=== PATIENT | female | born 1955 | race Caucasian/White ===

== ENCOUNTER 2018-04-24 14:57 | Emergency (ER) | payer OTHER ==
[2018-04-24 16:14] LABS: #Basophils 0.1 thou/uL (0.0-0.2); #Eosinphils 0.3 thou/uL (0.0-0.7); #Lymphocytes 5.3 thou/uL (1.20-3.40); #Monocytes 0.5 thou/uL (0.11-0.59); #Neutrophils 7.8 thou/uL (1.40-6.50); %Basophils 0.9 % (0.0-1.0); %Eosinophils 2.3 % (0.0-10.0); %Lymphocytes 37.7 % (21.0-51.0); %Monocytes 3.3 % (0.0-10.0); %Neutrophils 55.8 % (42.0-75.0); Hemoglobin 14.7 g/dL (12.0-16.0); Mean Corpuscular HGB CONC 33.1 g/dL (32.0-36.0); Mean Corpuscular Volume 93.6 fL (78.0-98.0); Mean Platelet Volume 8.4 fL (7.4-10.4); Platelet Count 345 thou/uL (130-400); RBC Distribution Width 13.1 % (11.5-14.5); Red Blood Cell (RBC) Count 4.76 mill/uL (4.20-5.40)
--- NOTE | 2018-04-24 16:21 | RAD ---
AP CHEST: History: History of hypotension. Date: 04-24-18 Comparison: 08-05-10 FINDINGS: AP chest demonstrates mild cardiomegaly. No evidence of effusions, pneumonia, or pneumothorax seen. M ild pulmonary vascular congestion is seen. IMPRESSION: Mild cardiomegaly and pulmonary vascular congestion. POS: [facility]
[2018-04-24 16:28] LABS: ALT (SGPT) 58 U/L (8-55); AST (SGOT) 66 U/L (5-34); Albumin 4.1 g/dL (3.4-4.8); Alkaline Phosphatase 104 U/L (40-150); Anion Gap 18 mmol/L (10-20); BUN (Urea Nitrogen) 10 mg/dL (9.8-20.1); Calc. Creatinine Clearance 0 mL/min (70-130); Calcium 9.5 mg/dL (7.8-10.44); Carbon Dioxide 23 mmol/L (23-31); Chloride 107 mmol/L (98-107); Estimated GFR-MDRD 57; Glucose 170 mg/dL (80-115); Potassium 3.6 mmol/L (3.5-5.1); Protein, Total 7.1 g/dL (6.0-8.3); Sodium 144 mmol/L (136-145)
[2018-04-24] MEDS ORDERED: Ipratropium Bromide 2.5 ml Neb ONE (18:28)
[2018-04-24] MEDS ORDERED: Albuterol Sulfate 2.5 mg/3 ml Neb ONE (18:28)
== END 2018-04-24 18:58 | disposition home or self-care (01) ==
LOC: MADERS 14:57
DX: J11.1 Influenza due to unidentified influenza virus with other respiratory manifestations (principal); E78.5 Hyperlipidemia, unspecified; I10 Essential (primary) hypertension; Z79.899 Other long term (current) drug therapy
CPT/HCPCS: 36415; 71045; 80053; 83880; 85025; 87804; 93005; J7611; J7620

== ENCOUNTER 2019-01-04 14:22 | Emergency (ER) | payer OTHER ==
--- NOTE | 2019-01-04 15:34 | RAD ---
EXAM: Chest PA and lateral: HISTORY: Cough. COMPARISON: 04/24/2018 FINDINGS: Heart: Cardiomegaly Aorta: Unremarkable Pulmonary vessels: Normal Costophrenic angles: Costophrenic angles are clear. Lungs: No consolidation or masses. Hyperinflation. Chronic changes. Pneumothorax: No pneumothorax Osseous structures: No osseous abnormalities IMPRESSION: No acute cardiopulmonary process. Hyperinflation. Chronic changes.
[2019-01-04 15:35] LABS: #Basophils 0.1 thou/uL (0.0-0.2); #Eosinphils 0.3 thou/uL (0.0-0.7); #Lymphocytes 4.9 thou/uL (1.20-3.40); #Monocytes 0.6 thou/uL (0.11-0.59); #Neutrophils 6.6 thou/uL (1.40-6.50); %Basophils 0.8 % (0.0-1.0); %Eosinophils 2.6 % (0.0-10.0); %Lymphocytes 39.1 % (21.0-51.0); %Monocytes 4.6 % (0.0-10.0); %Neutrophils 52.9 % (42.0-75.0); Hemoglobin 13.7 g/dL (12.0-16.0); Mean Corpuscular HGB CONC 30.9 g/dL (32.0-36.0); Mean Corpuscular Hemoglobin 30.1 pg (27.0-31.0); Mean Corpuscular Volume 97.4 fL (78.0-98.0); Mean Platelet Volume 7.8 fL (7.4-10.4); Platelet Count 390 thou/uL (130-400); RBC Distribution Width 12.9 % (11.5-14.5); Red Blood Cell (RBC) Count 4.54 mill/uL (4.20-5.40); White Blood Cell (WBC) Count 12.4 thou/uL (4.8-10.8)
[2019-01-04 15:51] LABS: ALT (SGPT) 29 U/L (8-55); AST (SGOT) 24 U/L (5-34); Albumin 4.3 g/dL (3.4-4.8); Alkaline Phosphatase 105 U/L (40-110); Anion Gap 16 mmol/L (10-20); BUN (Urea Nitrogen) 13 mg/dL (9.8-20.1); Bilirubin, Total 1.3 mg/dL (0.2-1.2); Calc. Creatinine Clearance 0 mL/min (70-130); Calcium 9.5 mg/dL (7.8-10.44); Carbon Dioxide 24 mmol/L (23-31); Chloride 108 mmol/L (98-107); Estimated GFR-MDRD 52; Globulin 2.9 g/dL (2.4-3.5); Glucose 109 mg/dL (80-115); Potassium 3.7 mmol/L (3.5-5.1); Protein, Total 7.2 g/dL (6.0-8.3); Sodium 144 mmol/L (136-145)
[2019-01-04] MEDS ORDERED: Sodium Chloride 0.9% 0 ML ONE (16:40)
[2019-01-04] MEDS ORDERED: cefTRIAXone\\ROCEPHIN 1 GM VIAL ONE (16:41)
[2019-01-04] MEDS ORDERED: Benzonatate 100 MG CAP ONE (17:31)
== END 2019-01-04 18:39 | disposition home or self-care (01) ==
LOC: MADERS 14:22
DX: J44.1 Chronic obstructive pulmonary disease with (acute) exacerbation (principal); M10.9 Gout, unspecified; D50.9 Iron deficiency anemia, unspecified; E03.9 Hypothyroidism, unspecified
CPT/HCPCS: 36415; 71046; 80053; 85025; 87804; 96372; J0696; J1040; J3490; J7620

== ENCOUNTER 2020-06-15 13:46 | Outpatient (CLI) | payer OTHER ==
[2020-06-15 13:59] LABS: #Basophils 0.1 thou/uL (0.0-0.2); #Eosinphils 0.3 thou/uL (0.0-0.7); #Monocytes 0.5 thou/uL (0.11-0.59); #Neutrophils 5.1 thou/uL (1.40-6.50); %Basophils 1.1 % (0.0-1.0); %Eosinophils 2.6 % (0.0-10.0); %Lymphocytes 39.9 % (21.0-51.0); %Neutrophils 51.4 % (42.0-75.0); Hemoglobin 14.6 g/dL (12.0-16.0); Mean Corpuscular HGB CONC 30.9 g/dL (32.0-36.0); Mean Corpuscular Hemoglobin 30.5 pg (27.0-31.0); Mean Corpuscular Volume 98.9 fL (78.0-98.0); Platelet Count 284 thou/uL (130-400); RBC Distribution Width 13.3 % (11.5-14.5); White Blood Cell (WBC) Count 9.9 thou/uL (4.8-10.8)
[2020-06-15 14:16] LABS: ALT (SGPT) 27 U/L (8-55); AST (SGOT) 19 U/L (5-34); Albumin 4.3 g/dL (3.4-4.8); Alkaline Phosphatase 98 U/L (40-110); Anion Gap 16 mmol/L (10-20); BUN (Urea Nitrogen) 18 mg/dL (9.8-20.1); Bilirubin, Total 1.3 mg/dL (0.2-1.2); Calc. Creatinine Clearance 0 mL/min (70-130); Calcium 9.3 mg/dL (7.8-10.44); Carbon Dioxide 25 mmol/L (23-31); Chloride 107 mmol/L (98-107); Cholesterol 117 mg/dl (< 200 Desired); Globulin 2.7 g/dL (2.4-3.5); Glucose 110 mg/dL (80-115); HDL Cholesterol 39 mg/dL (>60 Neg Risk); LDL Cholesterol, Calculated 45 mg/dL; Potassium 4.5 mmol/L (3.5-5.1); Sodium 143 mmol/L (136-145); Triglycerides 163 mg/dL (Less than 150); Uric Acid 4.2 mg/dL (2.6-6.0)
[2020-06-15 22:21] LABS: Hemoglobin A1c 6.1 % (4.0-6.0)
[2020-06-15 22:23] LABS: Gamma GT (GGT) 34 U/L (9-36)
[2020-06-15 22:30] LABS: Creatinine, Urine 133.72 mg/dL (47-110); Microalbumin Urine 9.2 mg/dL (0.5-50.0); Microalbumin/Creat Ratio 68.8 mg/g (Less than 30)
[2020-06-15 22:31] LABS: Vitamin D, 25 Hydroxy 27.7 ng/ml (> 30.0)
[2020-06-15 22:36] LABS: Free T4 (Free Thyroxine) 1.1 ng/dL (0.70-1.48)
== END 2020-06-15 13:47 | disposition home or self-care (01) ==
LOC: MADLAB 13:46
PROVIDERS: ATTEND Family Medicine
DX: R94.5 Abnormal results of liver function studies (principal); R06.02 Shortness of breath; I25.10 Atherosclerotic heart disease of native coronary artery without angina pectoris; R73.02 Impaired glucose tolerance (oral); E55.9 Vitamin D deficiency, unspecified; D51.0 Vitamin B12 deficiency anemia due to intrinsic factor deficiency; M10.9 Gout, unspecified
CPT/HCPCS: 36415; 71046; 80053; 80061; 82043; 82306; 82607; 82977; 83036; 84439; 84443; 84550; 85025

== ENCOUNTER 2023-02-21 11:45 | Emergency (ER) | payer MEDICARE, OTHER ==
[2023-02-21] MEDS ORDERED: Ipratropium/Albuterol 3 ML NEB ONE (12:22)
[2023-02-21] MEDS ORDERED: predniSONE 20 MG TAB ONE (12:22)
[2023-02-21] MEDS ORDERED: Acetaminophen 500 MG TAB ONE (12:22)
[2023-02-21] MEDS ORDERED: predniSONE 10 MG TAB ONE (12:22)
[2023-02-21] MEDS ORDERED: Ibuprofen 800 MG TAB ONE (12:22)
[2023-02-21] MEDS ORDERED: Ondansetron ODT 4 MG TAB ONE (12:26)
[2023-02-21 13:08] LABS: Hematocrit 41.4 % (36.0-47.0); Hemoglobin 13.2 g/dL (12.0-16.0); Mean Corpuscular Hemoglobin 30.3 pg (27.0-31.0); Mean Corpuscular Volume 94.9 fl (78.0-98.0); Platelet Count 155 10x3/uL (130-400); RBC Distribution Width 12.1 % (11.5-14.5); Red Blood Cell (RBC) Count 4.36 mill/uL (4.20-5.40); White Blood Cell (WBC) Count 14.4 10x3/uL (4.8-10.8)
[2023-02-21] MEDS ORDERED: Sodium Chloride 0.9% 100 ML ONE (13:12)
[2023-02-21] MEDS ORDERED: Azithromycin 500 MG VIAL ONE (13:12)
[2023-02-21] MEDS ORDERED: cefTRIAXone (ROCEPHIN) 2 GM VIAL ONE (13:12)
[2023-02-21] MEDS ORDERED: Sodium Chloride 0.9% 250 ML 250 ML ONE (13:12)
[2023-02-21 13:26] LABS: ALT (SGPT) 21 U/L (8-55); AST (SGOT) 17 U/L (5-34); Albumin 3.9 g/dL (3.4-4.8); Alkaline Phosphatase 71 U/L (40-110); Anion Gap 17 mmol/L (10-20); BUN (Urea Nitrogen) 12 mg/dL (9.8-20.1); Bilirubin, Total 1.7 mg/dL (0.2-1.2); Calc. Creatinine Clearance 0 mL/min (70-130); Calcium 8.7 mg/dL (7.8-10.44); Carbon Dioxide 20 mmol/L (23-31); Chloride 106 mmol/L (98-107); Estimated GFR 78; Globulin 2.6 g/dL (2.4-3.5); Glucose 159 mg/dL (80-115); Magnesium 1.6 mg/dL (1.6-2.6); Potassium 3.9 mmol/L (3.5-5.1); Protein, Total 6.5 g/dL (5.8-8.1); Sodium 139 mmol/L (136-145)
[2023-02-21 13:27] LABS: Band 12 % (5-11); Lymphocytes 16 % (21-51); MDiff Complete? YES; Monocytes 7 % (0-10); Neutrophil 63 % (42-75); Platelet Adequacy Comment Appears Adequate
[2023-02-21 16:02] LABS: SARS-CoV-2 NAA Rapid Test DETECTED (NotDetected)
== END 2023-02-21 16:05 | disposition short-term general hospital (02) ==
LOC: MADERS 11:45
DX: U07.1 COVID-19 (principal); J18.9 Pneumonia, unspecified organism; J96.00 Acute respiratory failure, unspecified whether with hypoxia or hypercapnia; A41.9 Sepsis, unspecified organism; I10 Essential (primary) hypertension; Z77.22 Contact with and (suspected) exposure to environmental tobacco smoke (acute) (chronic)
CPT/HCPCS: 71045; 80053; 83605; 83735; 85025; 87040; 96365; 96367; J0456; J0696; J3490; J7050; J7512; J7620; Q0162

== ENCOUNTER 2024-12-04 13:50 | Emergency (ER) | payer OTHER, MEDICAID ==
[~2024-12-04 13:50] MED LIST: Iopamidol 370 76% 100 ML VIAL ONE
[2024-12-04 14:37] LABS: #Basophils 0.1 thou/uL (0.0-0.2); #Eosinophils 0.3 thou/uL (0.0-0.7); #Lymphocytes 2.9 thou/uL (1.20-3.40); #Monocytes 0.3 thou/uL (0.11-0.59); #Neutrophils 4.1 thou/uL (1.40-6.50); %Basophils 1.3 % (0.0-1.0); %Eosinophils 4.2 % (0.0-10.0); %Lymphocytes 36.9 % (21.0-51.0); %Monocytes 4.2 % (0.0-10.0); %Neutrophils 53.4 % (42.0-75.0); Hematocrit 46.4 % (36.0-47.0); Hemoglobin 14.9 g/dL (12.0-16.0); Mean Corpuscular Hemoglobin 29.1 pg (27.0-31.0); Mean Corpuscular Volume 90.9 fl (78.0-98.0); Platelet Count 280 10x3/uL (130-400); Red Blood Cell (RBC) Count 5.11 mill/uL (4.20-5.40); White Blood Cell (WBC) Count 7.7 10x3/uL (4.8-10.8)
[2024-12-04 15:19] LABS: ALT (SGPT) 39 U/L (Less than 34); AST (SGOT) 34 U/L (11-34); Albumin 4.0 g/dL (3.1-4.5); Alkaline Phosphatase 75 U/L (40-110); Anion Gap 18 mmol/L (10-20); BUN (Urea Nitrogen) 10 mg/dL (9.8-20.1); Bilirubin, Total 0.9 mg/dL (0.3-1.2); Calc. Creatinine Clearance 0 mL/min (70-130); Calcium 8.8 mg/dL (7.8-10.44); Carbon Dioxide 23 mmol/L (23-31); Chloride 108 mmol/L (98-107); Globulin 2.6 g/dL (2.4-3.5); Glucose 122 mg/dL (80-115); Potassium 3.5 mmol/L (3.5-5.1); Sodium 145 mmol/L (136-145)
== END 2024-12-04 17:22 | disposition home or self-care (01) ==
LOC: MADERS 13:50
DX: R60.0 Localized edema (principal); I10 Essential (primary) hypertension; J44.9 Chronic obstructive pulmonary disease, unspecified
CPT/HCPCS: 36415; 71045; 71260; 80053; 83880; 85025; Q9967

== ENCOUNTER 2025-02-02 12:07 | Outpatient (CLI) | payer OTHER, MEDICAID | END 2025-02-02 12:08 | disposition home or self-care (01) | LOC: MADRAD 12:07 | PROVIDERS: ATTEND Family Medicine | DX: M79.605 Pain in left leg (principal); M79.89 Other specified soft tissue disorders; Z96.651 Presence of right artificial knee joint ==